=== PATIENT | female | born 1955 ===

== ENCOUNTER 2020-03-09 12:41 | Outpatient (REF) | payer MEDICAID, SELFPAY ==
--- NOTE | 2020-03-09 15:07 | MHC.AU.P13 ---
Adult Audiological Evaluation Date of Visit: 03/09/20 Reason for Appointment: Audiological re-evaluation to monitor status of hearing loss. Patient notes that she has lost both hearing aids. They are still under warranty and the L&D replacements will be ordered. Does patient feel they have a hearing loss?: Yes If Yes, Which Ear?: Both Ears Has hearing been tested previously?: Yes Previous Hearing Test Results: [facility], 11/09/2018- Moderate SNHL bilaterally, with left ear slightly worse than right for pure tones. Poor speech discrimination in the left ear and excellent speech understanding in the right ear. Medical History: Medical History: High Blood Pressure, Migraines, Seizure Disorder, Stroke, Thyroid Disease Medical History (Other): Stroke with residual left hemiparesis, vascular dementia, hypothyroidism, endocarditis, hepatitis B, COPD, Lupus Otoscopy: Right Ear: Unremarkable Left Ear: Unremarkable Tympanometry: Right Ear: Normal Middle Ear System (Type A) Left Ear: Normal Middle Ear System (Type A) Hearing Evaluation: Transducer(s) Used: Insert Earphones Method: Conventional Audiometry Stimuli Used: Pure Tones Right Ear: Description of Hearing: Moderate hearing loss from 250-8000 Hz. Patient became fatigued during testing and had to be reinstructed a number of times. Did not do bone conduction testing due to patient fatigue. Good reliability for right ear testing as it was tested first. Patient was tested outside of the sound cedeno today as her wheelchair did not fit through the sound cedeno door. Left Ear: Description of Hearing: Moderate to severe hearing loss from 250-8000 Hz. Fair to poor reliability for left ear testing, especially for the high-frequencies. Patient became fatigued during testing and had to be reinstructed a number of times. Patient was tested outside of the sound cedeno today as her wheelchair did not fit through the sound cedeno door. Speech Recognition Threshold (SRT): Method Used: Not performed at today's visit. Word Discrimination: Method: Recorded Lists Word Lists Used: NU-6 Right Ear: 88% at 80 dBHL Left Ear: 36% at 80 dBHL Comparison: Compared to the most recent evaluation: Hearing is stable. Recommendations: Recommendations: Audiological re-evaluation in one year. Recommendations (Other): Patient will be called to schedule an appointment to pick-up the replacement hearing aids when they arrive. Diagnosis: Primary Diagnosis: H90.3 Bilateral Sensorineural Hearing Loss Services Performed: Services Performed: Pure Tone- Air (CPT 20489) Speech Audiometry Threshold, with Speech Recognition (CPT 92564) Tympanometry (CPT 07363) Signature: Provider: Rico Jacobs, CCC-A
== END 2020-03-09 12:42 | disposition home or self-care (01) ==
LOC: HO.SH 12:41
PROVIDERS: PCP Internal Medicine; Referring Provider Internal Medicine; Visit Provider Internal Medicine
DX: H90.3 Sensorineural hearing loss, bilateral (principal)
CPT/HCPCS: 92552; 92556; 92567

== ENCOUNTER 2020-06-30 10:17 | Outpatient (REF) | payer MEDICARE, MEDICAID, SELFPAY | END 2020-06-30 10:18 | disposition home or self-care (01) | LOC: HO.HAP 10:17 | PROVIDERS: Visit Provider Internal Medicine | DX: Z13.89 Encounter for screening for other disorder (principal) ==

== ENCOUNTER 2020-07-31 10:08 | Outpatient (REF) | payer MEDICARE, MEDICAID, SELFPAY | END 2020-07-31 10:09 | disposition home or self-care (01) | LOC: HO.HAP 10:08 | PROVIDERS: Visit Provider Internal Medicine | DX: Z46.1 Encounter for fitting and adjustment of hearing aid (principal) | CPT/HCPCS: V5266 ==

== ENCOUNTER 2021-03-15 10:30 | Outpatient (REF) | payer MEDICARE, MEDICAID, SELFPAY ==
--- NOTE | 2021-03-19 13:34 | MHC.AU.AHA ---
Adult Audiological Evaluation Date of Visit: 03/15/21 Field Liability Generalist Used: Not Applicable Reason for Appointment: Audiologic re-evaluation due to question of change in hearing. Previous Hearing Test Results: 03/09/2020 [facility] Right Ear - Moderate sensorineural hearing loss. Left Ear - Moderate to severe sensorineural hearing loss with poor speech discrimination. Medical History: Medical History: High Blood Pressure, Migraines, Seizure Disorder, Stroke with residual left hemiparesis, vascular dementia, hypothyroidism, endocarditis, hepatitis B, COPD, Lupus Medication List: Ritalin, Prozac, Cymbalta, Klonopin, Neurontin, Zocor, Spiriva, Severent Diskus, Flomax, Metoprolol, Vitamin D3, Prilosec, Zyprexa, Valtrex, Desyrel Hearing Instrument History- Right Ear: Dispatch Supervisor: Phonak Model: Virto B50-312 Serial Number: [id number] Battery Size: 312 Repair Warranty: 01/05/2022 Loss and Damage Warranty: USED 06/30/2020 Dispensed By: [facility] Date of Fittin12/17/2018 Hearing Instrument History- Left Ear: Dispatch Supervisor: Phonak Model: CROS B-312 Serial Number: [id number] Battery Size: 312 Warranty: 01/05/2022 Loss and Damage Warranty: USED 06/30/2020 Dispensed By: [facility] Date of Fittin12/17/2018 Otoscopy: Right Ear: Unremarkable Left Ear: Unremarkable Tympanometry: Tympanometry performed due to: To assess integrity of the middle ear system Right Ear: Reduced Middle Ear Compliance (Type As) Left Ear: Reduced Middle Ear Compliance (Type As) Hearing Evaluation: Transducer(s) Used: Insert Earphones Bone Conduction Method: Conventional Audiometry Stimuli Used: Pure Tones Right Ear: Description of Hearing: Moderate sensorineural hearing loss through all frequencies. Left Ear: Description of Hearing: Moderately-severe to severe sensorineural hearing loss. Speech Recognition Threshold (SRT): Method Used: Not performed at today's visit. Testing could not be performed. Could not get wheelchair in soundproof cedeno. Word Discrimination: Method: Not performed at today's visit. Testing could not be performed. Could not get wheelchair in soundproof cedeno. Comparison: Compared to most recent evaluation: Overall thresholds have decreased 5-10 dB compared to 2020 results. Recommendations: Hearing aid maintenance performed today. Hearing aid(s) reprogrammed with updated test results. Audiological re-evaluation in one year. Will send a reminder card. Diagnosis: Primary Diagnosis: H90.3 Bilateral Sensorineural Hearing Loss Services Performed: Pure Tone- Air & Bone (CPT 86603) Tympanometry (CPT 16434) Signature: Provider: Rico Wilson, [facility]
== END 2021-03-15 10:31 | disposition home or self-care (01) ==
LOC: HO.SH 10:30
PROVIDERS: Visit Provider Internal Medicine
DX: Z46.1 Encounter for fitting and adjustment of hearing aid (principal); H90.3 Sensorineural hearing loss, bilateral
CPT/HCPCS: 92553; 92567; V5266

== ENCOUNTER 2021-04-09 08:50 | Outpatient (REF) | payer MEDICARE, MEDICAID, SELFPAY ==
--- NOTE | 2021-04-09 13:09 | MHC.AU.HAS ---
Hearing Aid Evaluation Date of Visit: 04/09/21 Historical Information: Description of Hearing: Right Ear - Moderate sensorineural hearing loss. Left Ear - Moderately-severe to severe sensorineural hearing loss. Current personal amplification information, if applicable: Recently lost her binaural Phonak Virto B 50-312 [id number] aids. Summary: Patient reports she was having trouble with the hearing aids moving out of her ears which has been bothering her. She removed the aids from the ears and unable to find them. Patient would like bigger dipssf-kdo-lrr hearing aids with standard earmolds for better retention and easier to find if put down. Rechargeable hearing aids are recommended due to Lis's reduced manual dexterity and her history of stroke, and vascular dementia. Hearing Aid Prescription: Based on the individual?s shared listening needs, communication environments, dexterity, desire for connectivity, and personal preferences, the following prescription for amplification has been made: Right ear: Insurance Verification Specialist: [employer] Model: Evolve AI 1600 TAM-R Battery Size: Rechargeable Color: Niles Silver Car Rental Manager: # 2 - 60 gain Type of Mold: Sabrina Canal Lock Left ear: Insurance Verification Specialist: [employer] Model: CROS -R Battery Size: Rechargeable Color: Niles Silver Car Rental Manager: #2 CROS Type of Mold: Sabrina Canal Lock Plan of Care: Patient wishes to purchase hearing aids as prescribed Action Taken/Action Needed: Earmold Impressions Taken Prior authorization to be requested Medical Clearance to be requested from PCP/ENT Comments: When medical clearance is received, will fax prior authorization for replacement aids to [facility] Primary Diagnosis: H90.3 Bilateral Sensorineural Hearing Loss Signature: Provider: Rico Wilson, [facility]
--- NOTE | 2021-04-09 13:11 | MHC.AU.MED ---
Medical Clearance for Hearing Instrumentation Date: 04/09/21 Patient Name: Lis Purcell Date of : 1955 Primary Care Provider: Referring Provider: Damon Christiansen, DO We have seen your patient on 04/09/21 and have determined that they are a candidate for amplification (See accompanying report). Specifically, they would benefit from: Hearing aid use in both ears There is a statute that addresses Medical Evaluation Requirements prior to fitting a patient with a hearing aid. According to [place] statute 265 CMR:6.03(1), (a) General. Except as provided in 265 CMR 6.03(1)(b), a ski base trimmer shall not sell a hearing aid unless the prospective user has presented to the ski base trimmer a written statement signed by a licensed physician that states that the patient's hearing loss has been medically evaluated and the patient may be considered a candidate for a hearing aid. The medical evaluation must have taken place within the preceding six months. Please note: Due to the [place] Statute referenced above, we cannot accept a signature other than that of a licensed physician. ENAMEL SHADER and PA signatures cannot be accepted. I am in agreement with the above recommendation. There is no medical contraindication for hearing instrumentation. Physician Signature Date Physician Name (Printed)
== END 2021-04-09 08:51 | disposition home or self-care (01) ==
LOC: HO.HAP 08:50
PROVIDERS: Visit Provider Internal Medicine
DX: Z46.1 Encounter for fitting and adjustment of hearing aid (principal); H90.3 Sensorineural hearing loss, bilateral
CPT/HCPCS: 92591; V5275

== ENCOUNTER 2021-07-12 10:40 | Outpatient (REF) | payer MEDICARE, MEDICAID, SELFPAY | END 2021-07-12 10:41 | disposition home or self-care (01) | LOC: HO.HAP 10:40 | PROVIDERS: Visit Provider Internal Medicine | DX: Z46.1 Encounter for fitting and adjustment of hearing aid (principal); H90.3 Sensorineural hearing loss, bilateral | CPT/HCPCS: V5011; V5020; V5240; V5261; V5264 ==

== ENCOUNTER 2021-07-26 10:32 | Outpatient (REF) | payer MEDICARE, MEDICAID, SELFPAY ==
--- NOTE | 2021-07-26 15:58 | MHC.AU.HFU ---
Hearing Instrument Follow-Up- Binaural Date of Visit: 07/26/21 Right Ear: Tie Binder: [employer]ootRock Model: Evolve AI 1600 TAM-R Serial Number: [id number] Repair Warranty: 10/02/2024 Loss and Damage Warranty: 10/02/2024 Battery Size: Rechargeable Color: Niles Silver Simulation Software Engineer: # 2 - 60 gain Type of Mold: Sabrina Canal Lock #[id number] warranty 09/16/2021 Type of Wax Guard: HearClear Dispensed By: [facility] Date of Fittin07/12/2021 Left Ear: Tie Binder: Sabrina Model: CROS -R Serial Number: [id number] Repair Warranty: 10/02/2024 Loss and Damage Warranty: 10/02/2024 Battery Size: Rechargeable Color: Niles Silver Simulation Software Engineer: #2 CROS Type of Mold: Sabrina Canal Lock #[id number] warranty 09/16/2021 Type of Wax Guard: HearClear Dispensed By: [facility] Date of Fittin07/12/2021 Follow-Up Summary: 2 week GARCIA follow-up. Patient reports she loves the hearing aids and can now hear everything, including whispers. Asked patient if anything is too loud and she reported all environments she has been in has been comfortable so no adjustments are needed today. SPEED RUNNER helps with insertion and care. Datalogging shows average of 7 hours daily wearing time. Recommendations:Hearing instrument follow-up or maintenance as needed. Please contact our clinic with any questions or concerns. Diagnosis Code(s):Primary Diagnosis: H90.3 Bilateral Sensorineural Hearing Loss Signature:Provider: Maurice Wilson, [facility]
== END 2021-07-26 10:33 | disposition home or self-care (01) ==
LOC: HO.HAP 10:32
PROVIDERS: Visit Provider Internal Medicine
DX: Z13.89 Encounter for screening for other disorder (principal)

== ENCOUNTER 2023-08-28 14:04 | Outpatient (REF) | payer MEDICARE, MEDICAID, SELFPAY ==
--- NOTE | 2023-08-28 14:47 | MHC.AU.HA3 ---
Hearing Instrument Follow-Up- Binaural Date of Visit: 08/28/23 Right Ear: Make, Model, Color, Serial Number: Sabrina Zacarias AI 1600 TAM S#[id number] Warranty 10/02/2024 Resident Care Spec Repair Warranty: 10/02/2024 Resident Care Spec Loss and Damage Warranty: USED [facility] Service Plan: Battery Size: Rechargeable Auxiliary Engineer/Slim Tube: # 2 - 60 gain Earmold/Dome/CShell/SlimTip:Sabrina Canal Lock #[id number] warranty 11/17/2023 Type of Wax Guard: HearClear Dispensed By: [facility] Date of Fittin07/12/2021 Left Ear: Make, Model, Color, Serial Number: Sabrina Zacarias AI Cros S#[id number] Warranty 10/02/2024 Resident Care Spec Repair Warranty: 10/02/2024 Resident Care Spec Loss and Damage Warranty: USED [facility] Service Plan: Battery Size: Rechargeable Auxiliary Engineer/Slim Tube: #2 CROS Earmold/Dome/CShell/SlimTip: Sabrina Canal Lock #[id number] warranty 11/17/2023 Type of Wax Guard: HearClear Dispensed By: [facility] Date of Fittin07/12/2021 Follow-Up Summary: Here to pecan picker replacement aids and new earmolds. Settings have been restored. Good subjective comfort and benefit reported. Recommendations: Recommendations: Hearing instrument follow-up or maintenance as needed. Diagnosis Code(s): Primary Diagnosis: H90.3 Bilateral Sensorineural Hearing Loss Signature: Provider: Edi Candelaria, [facility]
== END 2023-08-28 14:05 | disposition home or self-care (01) ==
LOC: HO.HAP 14:04
PROVIDERS: Visit Provider Internal Medicine
DX: Z46.1 Encounter for fitting and adjustment of hearing aid (principal); H90.3 Sensorineural hearing loss, bilateral
CPT/HCPCS: V5264

== ENCOUNTER 2024-02-10 10:50 | Outpatient (REF) | payer MEDICARE, MEDICAID, SELFPAY ==
--- NOTE | 2024-02-10 13:33 | MHC.AU.HA1 ---
Hearing Aid Evaluation Date of Visit: 02/10/24 Historical Information: Description of Hearing: Moderately severe to severe sensorineural hearing loss bilateral. Current personal amplification information, if applicable: Previously wore Sabrina Evolv AI TAM R right with CROS left. Summary: Lis reports both hearing aids were lost , likely thrown away after she set them down on a napkin a couple months ago. Loss and damage policy already used. Reports significant difficulty communicating and frustration with asks for repetition. Recommended binaural amplification due to excellent word discrimination with words present binaurally. Lis would like to continue using rechargeable hearing aids. Selected bright pink so they are easier to find if misplaced. Maggy, who accompanied Lis today reports that they will put up signs and work to make sure the hearing aids are not lost again. Prior approval from insurance is needed to replace aids at this time as it has been less than five years since she was fit. Hearing Aid Prescription: Based on the individual?s shared listening needs, communication environments, dexterity, desire for connectivity, and personal preferences, the following prescription for amplification has been made: Right ear: Make, Model, Color: Phonak Audeo L 70 R pink Battery Size: Rechargeable Patient Services Rep/Slim Tube: 2 M Type of Earmold/Dome/CShell/SlimTip: silicone canal lock Left ear: Make, Model, Color: Phonak Audeo L 70 R pink Battery Size: Rechargeable Patient Services Rep/Slim Tube: 2 M Type of Earmold/Dome/CShell/SlimTip: silicone canal lock Plan of Care: Patient wishes to purchase hearing aids as prescribed Action Taken/Action Needed: Earmold Impressions Taken Prior authorization to be requested Medical Clearance to be requested from PCP/ENT Primary Diagnosis: H90.3 Bilateral Sensorineural Hearing Loss Signature: Provider: Edi Candelaria, CCC-A
== END 2024-02-10 10:51 | disposition home or self-care (01) ==
LOC: HO.SH 10:50
PROVIDERS: Visit Provider Internal Medicine
DX: Z01.118 Encounter for examination of ears and hearing with other abnormal findings (principal); Z46.1 Encounter for fitting and adjustment of hearing aid; H90.3 Sensorineural hearing loss, bilateral
CPT/HCPCS: 92552; 92556; 92591; V5275

== ENCOUNTER 2024-04-09 10:01 | Outpatient (REF) | payer MEDICARE, MEDICAID, SELFPAY ==
--- NOTE | 2024-04-09 15:41 | MHC.AU.HA2 ---
Hearing Instrument Fitting- Adult- Binaural Date of Visit: 04/09/24 Hearing Instruments Dispensed: Right Ear: Make, Model, Color, Serial Number: Phonak Audeo L 70 R pink S#[id number] [facility] Home Care Coordinator Repair Warranty: 04/15/2027 Hospice Home Care Coordinator Loss and Damage Warranty: 04/15/2027 [facility] Service Plan: 04/09/25 Battery Size: Rechargeable Report Clerk/Slim Tube: 1 M Earmold/Dome/CShell/SlimTip: silicone canal lock S#[id number] Warranty 07/14/2024 Type of Wax Guard: Cerustop Left Ear: Make, Model, Color, Serial Number: Phonak Audeo L 70 R pink S#[id number] Hospice Home Care Coordinator Repair Warranty: 04/15/2027 Hospice Home Care Coordinator Loss and Damage Warranty: 04/15/2027 [facility] Service Plan: 04/09/25 Battery Size: Rechargeable Report Clerk/Slim Tube: 1 M Earmold/Dome/CShell/SlimTip: silicone canal lock S#[id number] Warranty 07/23/2024 Type of Wax Guard: Cerustop Accessories/Assistive Technology: Phonak Managing Cognitive Engineer Ease S#[id number] Summary of Fitting: Fit with and oriented to binaural Phonak Audeo L70 HAs with silicone canal lock slim tips. Accompanied by Kaila today. Attempted verification to DSL adult 5 targets. Results seemed unreliable despite trying new probe tubes and adjusting Lis's position. Saved results but recommend trying to verify again at follow up. Lis reports good subjective comfort and benefit. Kaila reports that staff will manage insertion, removal, charging, and maintenance of hearing aids. Reviewed all. Recommendations: Recommendations: Hearing instrument care and maintenance were discussed and practiced. A hearing instrument follow-up was scheduled. Diagnosis Code(s): Primary Diagnosis: H90.3 Bilateral Sensorineural Hearing Loss Signature: Provider: Edi Candelaria, [facility]
== END 2024-04-09 10:02 | disposition home or self-care (01) ==
LOC: HO.HAP 10:01
PROVIDERS: Visit Provider Internal Medicine
DX: Z46.1 Encounter for fitting and adjustment of hearing aid (principal); H90.3 Sensorineural hearing loss, bilateral
CPT/HCPCS: V5011; V5020; V5160; V5261; V5264